=== PATIENT | male | born 1990 | race Caucasian/White ===

== ENCOUNTER 2017-09-15 20:32 | Emergency (ER) | payer SELFPAY ==
[~2017-09-15] VITALS: Ht 170.2 cm; Wt 85.0 kg
[~2017-09-15 20:32] MED LIST: PERC10TA27 PO; Z.0.NO CURRENT MEDS
[2017-09-15 20:55] VITALS: BP 158/84; PULSE 81; RESP 18; TEMP 98.8; O2SAT 100
--- NOTE | 2017-09-15 21:24 | PD ---
HPI Chief Complaint: Injury Time Seen by Provider: 21:04 Travel History International Travel<30 days: No Contact w/Intl Traveler<30days: No Traveled to known affect area: No History of Present Illness HPI 27-year-old right-hand dominant white male presents emergency department we will complaints of a right hand boxer fracture of 1 week duration. He was seen at [facility] last week at the time of his injury the patient was x-rayed and placed in a splint. He states that he was supposed to be referred to an orthopedist but when he reviewed his information and had merely advised him to follow-up with a primary care doctor. The patient states that he is uninsured and does not have a primary care doctor. He also states that he had taken his splint off today to have a shower and somehow the splint had gotten broken. The patient here denies any significant pain. No significant swelling. He denies any sensory changes. History Past Medical Histgory Narrative Medical Right fifth metacarpal fracture, left femur fracture Tetanus Vaccination: < 5 Years Hx Cancer: No Hx Chemotherapy: No Hx Radiation Therapy: No Past Surgical History Narrative Surgical Left femur fracture with IM hannah, IM hannah removal right femur Social History Alcohol Use: No Tobacco Use: Yes (1/2 PACK PER DAY) Allergies-Medications (Allergen,Severity, Reaction): Coded Allergies: No Known Allergies (Verified Adverse Reaction, Unknown, 09/15/17) Reported Meds & Prescriptions Reported Meds & Active Scripts Active No Active Prescriptions or Reported Medications Review of Systems General / Constitutional: No: Fever Eyes: No: Visual changes HENT: No: Headaches Cardiovascular: No: Chest Pain or Discomfort Respiratory: No: Shortness of Breath Gastrointestinal: No: Abdominal Pain Genitourinary: No: Dysuria Musculoskeletal: Positive: Pain (Minimal), No: Myalgias, Arthralgias, Limited ROM, Weakness, Cramping, Edema Skin: No Rash Neurologic: No: Weakness, Paresthesia Psychiatric: No: Depression Endocrine: No: Polydipsia Hematologic/Lymphatic: No: Easy Bruising Physical Exam Narrative GENERAL: This is a well-nourished, well-developed patient, in no apparent distress. SKIN: No rashes, ecchymoses or lesions. Warm and dry. HEAD: Atraumatic. Normocephalic. EYES: PERRL, EOMI, no discharge or injection. No scleral icterus. EARS: Clear NOSE: Nasal turbinates appear normal. THROAT: Mucosa pink and moist. Airway patent. NECK: Trachea midline. supple, moves head freely. LUNGS: Clear to auscultation. CV: Regular in rhythm. ABDOMEN: Soft nontender. EXT: No clubbing cyanosis or edema. Minimal tenderness along right. The skin is intact. Full range of motion. Neurovascular intact. The fifth metacarpal Data Data Last Documented VS Vital Signs Date Time Temp Pulse Resp B/P (MAP) Pulse Ox O2 Delivery O2 Flow Rate FiO2 09/15/17 20:55 98.8 81 18 158/84 (108) 100 MDM Medical Screen Exam Complete: Yes Emergency Medical Condition: No Differential Diagnosis MDM: High Differential diagnoses: Fracture, sprain, strain, dislocation, contusion, neurovascular injury Narrative Course A medical screening exam was performed: At the time of evaluation the presenting medical condition was determined not to be of an emergent nature. The patient was given the option of receiving additional care, but declined. Patient was given options for additional community resources from which to obtain care. The Patient Has Been advised to seek medical attention for their presenting complaint. The patient has been advised to return to the ER at any time if an emergent condition develops. Primary Impression: Encounter for medical screening examination Scripts No Active Prescriptions or Reported Meds Condition: Stable Jorge Dennison September 15, 2017 21:24
== END 2017-09-15 21:20 | disposition left against medical advice (07) ==
LOC: NEPD 20:32
DX: Z00.00 Encounter for general adult medical examination without abnormal findings (principal); S62.306A Unspecified fracture of fifth metacarpal bone, right hand, initial encounter for closed fracture; X58.XXXA Exposure to other specified factors, initial encounter; Z72.0 Tobacco use
CPT/HCPCS: 99281